=== PATIENT | male | born 1980 | race African-American/Black ===

== ENCOUNTER 2018-09-06 11:24 | Day surgery (SDC) | payer MEDICAID, OTHER ==
[~2018-09-06 11:24] MED LIST: PROPOFOL INJ 200 MG/20 ML VIAL IV ONE
[2018-09-06 12:37] VITALS: BP 136/70
--- NOTE | 2018-09-06 12:41 | Operative Report ---
Operative Report DATE OF SURGERY: 09/06/18 Operative Report: The risks, benefits and alternatives of the procedure including the risk of bleeding, perforation requiring surgery have been explained to the patient in detail and informed consent has been obtained. Patient is taken back to the endoscopy suite and placed in the left, lateral decubital position. Timeout was called. Propofol medication is administered. A rectal examination is done which did not reveal any masses, tears or fissures. An Olympus videoscope was introduced into the patient's rectum. The scope was then carefully advanced all the way to the cecum. The cecum was identified by the usual anatomical landmarks including the ileocecal valve as well as the appendiceal office. Photodocumentation is obtained. The scope was then sequentially pulled back via the various segments of the colon including the ascending colon, hepatic flexure, transverse colon, splenic flexure, descending colon and finally into the rectosigmoid portions of the colon. Retroflexion maneuvers performed. The risks benefits and alternatives of the procedure explained to the patient in detail and informed consent is obtained.A GIF Olympus video scope was inserted into the patient's mouth and hypopharynx, the esophagus is identified intubated and insufflated ,the scope was then advanced through the esophagus stomach and duodenum, retroflexion maneuver is done, the esophagus stomach and first and second portions of the duodenum examined. PREOPERATIVE DIAGNOSIS: Rectal bleeding. Gastroesophageal reflux disease POSTOPERATIVE DIAGNOSIS: Right-sided inflammation noted in the colon, biopsy rule out lymphocytic colitis. Internal hemorrhoids. Gastritis. Duodenitis. Biopsies to rule out for Helicobacter pylori OPERATION: Colonoscopy with biopsy. EGD with biopsy SURGEON: RAMILA RAINES ANESTHESIA: LMAC TISSUE REMOVED OR ALTERED: As noted above. COMPLICATIONS: None. ESTIMATED BLOOD LOSS: None. INTRAOPERATIVE FINDINGS: As noted above. PROCEDURE: Patient tolerated the procedure well. No immediate postprocedure complications are noted. Patient is discharged in good condition. Discharge date 09/06/2018. Discharge diet: Regular. Discharge activity: Regular. 2 to 3-week follow-up to discuss findings. Patient is instructed to call the office or proceed to the emergency room should there be any further problems or questions. Wait on the pathology.
== END 2018-09-06 12:40 | disposition home or self-care (01) ==
LOC: END 11:24
PROVIDERS: ATTEND Internal Medicine Gastroenterology
DX: K52.9 Noninfective gastroenteritis and colitis, unspecified (principal); K64.8 Other hemorrhoids; K29.50 Unspecified chronic gastritis without bleeding; K29.80 Duodenitis without bleeding; K62.5 Hemorrhage of anus and rectum; K21.9 Gastro-esophageal reflux disease without esophagitis; Z79.899 Other long term (current) drug therapy
CPT/HCPCS: 43239; 45380; 88305 ×2; J2704

== ENCOUNTER → 2018-09-10 | Outpatient (CLI) | payer OTHER ==
[2018-09-10 15:53] LABS: ABSOLUTE EOSINOPHILS # (AUTO) 0.2 10^3/uL (0.0-0.6); ABSOLUTE LYMPHOCYTES (AUTO) 2.9 10^3/uL (0.5-4.7); ABSOLUTE MONOCYTES (AUTO) 0.6 10^3/uL (0.1-1.4); ABSOLUTE NEUT (AUTO) 4.9 10^3/uL (1.7-8.2); BASOPHILS % (AUTO) 0.2 % (0-2); EOSINOPHILS % (AUTO) 1.8 % (0-6); HEMATOCRIT 43.8 % (37.9-51.0); HEMOGLOBIN 14.8 g/dL (13.5-17.0); LYMPHOCYTES % (AUTO) 33.7 % (13-45); MEAN CORPUSCULAR HEMOGLOBIN 31.5 pg (27.0-33.4); MEAN CORPUSCULAR HGB CONC 33.7 g/dL (32.0-36.0); MEAN CORPUSCULAR VOLUME 93 fl (80-97); MONOCYTES % (AUTO) 6.7 % (3-13); PLATELET COUNT 277 10^3/uL (150-450); RED BLOOD COUNT 4.69 10^6/uL (4.35-5.55); RED CELL DISTRIBUTION WIDTH 14.5 % (11.5-14.0); SEGMENTED NEUTROPHILS % (AUTO) 57.6 % (42-78); TOTAL CELLS COUNTED % (AUTO) 100 %; WHITE BLOOD COUNT 8.5 10^3/uL (4.0-10.5)
== END ==
LOC: OD 14:30
PROVIDERS: ATTEND Surgery
DX: R22.1 Localized swelling, mass and lump, neck (principal); R59.1 Generalized enlarged lymph nodes
CPT/HCPCS: 36415; 83615; 85025

== ENCOUNTER 2018-10-14 08:26 | Day surgery (SDC) | payer OTHER ==
[~2018-10-14 08:26] MED LIST changes: +CEFAZOLIN 1 GM/D5W RTU 1 GM/50 ML RTUPB IV ONE; +CEFAZOLIN 1 GM/D5W RTU 1 GM/50 ML RTUPB IV PRN; +LACTATED RINGERS 1000 ML IV PRN; +LIDOCAINE 0.5% INJ-PF (5 MG/ML) 50 ML SDV SUBCUT PRN; -PROPOFOL INJ 200 MG/20 ML VIAL IV ONE
[2018-10-14] MEDS ORDERED: BUPIVACAINE HCL 0.25% /EPINEPHRINE INJ/PF 30 ML SDV INFIL ONE ×3 (09:22→10:22)
[2018-10-14] MEDS ORDERED: BUPIVACAINE HCL 0.25% /EPINEPHRINE INJ/PF 30 ML SDV ONE (09:31)
[2018-10-14] MEDS ORDERED: KETAMINE HCL INJ 500 MG/10 ML VIAL ONE (10:00)
[2018-10-14] MEDS ORDERED: MIDAZOLAM 2 MG/2 ML INJ ONE (10:01)
[2018-10-14] MEDS ORDERED: PROPOFOL INJ 200 MG/20 ML VIAL IV ONE ×2 (10:01→11:18)
[2018-10-14] MEDS ORDERED: FENTANYL CITRATE INJ/PF 100 MCG/2 ML AMPUL ONE (10:01)
[2018-10-14] MEDS ORDERED: FENTANYL CITRATE INJ/PF 100 MCG/2 ML AMPUL IV PRN ×3 (10:57)
[2018-10-14] MEDS ORDERED: PROMETHAZINE HCL INJ 25 MG/1 ML VIAL IV PRN ×2 (10:57)
[2018-10-14] MEDS ORDERED: DIPHENHYDRAMINE HCL 50 MG/ML VIAL IV PRN (10:57)
[2018-10-14] MEDS ORDERED: MEPERIDINE HCL/PF INJ 25 MG/1 ML DISP.SYRIN IV PRN (10:57)
[2018-10-14] MEDS ORDERED: MORPHINE SULFATE 10 MG/ML INJ IV PRN (10:57)
--- NOTE | 2018-10-14 11:02 | Operative Report ---
Nonrecallable Operative Report DATE OF SURGERY: 10/14/18 PREOPERATIVE DIAGNOSIS: Right cervical lymphadenopathy POSTOPERATIVE DIAGNOSIS: Right cervical lymphadenopathy OPERATION: Right cervical node biopsy SURGEON: MIKE DAVILA [employer]: GEOVANNA MCLEAN ANESTHESIA: Moderate Sedation TISSUE REMOVED OR ALTERED: Right cervical lymph node COMPLICATIONS: None ESTIMATED BLOOD LOSS: 15 cc INTRAOPERATIVE FINDINGS: See dictation PROCEDURE: Patient was brought to the operating room awake alert stable condition placed in the operative table supine position given moderate sedation by anesthesia. The right neck was prepped and draped in usual sterile manner for the procedure. About 2 cm inferior to the right mandible approximately 4 cm long incision was made with a 15 blade and dissection was carried down through subcutaneous tissue with Bovie cautery through the platysma muscle with Bovie cautery. Superficial cervical fascia was divided with Bovie cautery and the sternocleidomastoid muscle was encountered the mass was just underneath the sternocleidomastoid muscle the muscle was bluntly divided and and held open with Army-Plain View retractors. The large cervical node was encountered and was bluntly dissected from the surrounding tissue on top of the internal jugular vein. It was bluntly mobilized and the pedicle supplying the lymph node was controlled with a 3-0 Vicryl suture and the lymph node was able to be removed. It was noted to be oozing some pus and therefore cultures were sent in addition as a small specimen was sent for AFB. The remainder of the large lymph node which is about 3 cm in diameter was sent off for pathology. The sternocleidomastoid muscle was then reapproximated with 2 stitches of 3-0 Vicryl similarly the platysma muscle was reapproximated and the skin was then closed with 4-0 Biosyn. The incision was then secured with Steri-Strips which completed the procedure. Estimated blood loss is approximately 15 cc. Geovanna reilly was present for wound retraction wound closure throughout the entire case.
--- NOTE | 2018-10-14 11:04 | Discharge Summary ---
Discharge Summary (SDC) - Discharge Final Diagnosis: Right cervical lymphadenopathy Date of Surgery: 10/14/18 Discharge Date: 10/14/18 Condition: Good Forms: ASU Anesthesia D/C Instruction, Discharge POC-Surgical Service Referrals: MIKE FITCH MD [ACTIVE STAFF] - 10/22/18 10:15 am Discharge Diet: As Tolerated Discharge Activity: Activity As Tolerated Report the Following to Your Physician Immediately: Shortness of Breath, Nausea, Vomiting, Increase in Pain - She needs a follow-up appointment 10 to 14 days pos top, Unusual Bleeding, Redness
[2018-10-14] MEDS ORDERED: OXYCODONE-ACETAMINOPHEN 5-325 MG TABLET PO PRN (11:05)
[2018-10-14] MEDS ORDERED: OXYCODONE-ACETAMINOPHEN 5-325 MG TABLET ONE (12:05)
[2018-10-14] MEDS ORDERED: GLYCOPYRROLATE 1 MG/5 ML VIAL ONE (13:52)
[2018-10-14] MEDS ORDERED: ONDANSETRON HCL INJ/PF 4 MG/2 ML SDV ONE (13:52)
[2018-10-14 13:56] VITALS: BP 118/74
== END 2018-10-14 13:06 | disposition home or self-care (01) ==
LOC: OROUT 08:26
PROVIDERS: ATTEND Surgery
DX: C96.9 Malignant neoplasm of lymphoid, hematopoietic and related tissue, unspecified (principal); R59.0 Localized enlarged lymph nodes; F17.210 Nicotine dependence, cigarettes, uncomplicated; Z79.899 Other long term (current) drug therapy; Z01.818 Encounter for other preprocedural examination
CPT/HCPCS: 87070; 87205; 87101; 87075; 88305 ×2; 00320; 38500; J2250; J3490 ×3; J0690; J3010; J2405; J2704; 320

== ENCOUNTER → 2018-11-21 | Outpatient (CLI) | payer OTHER ==
--- NOTE | 2018-11-22 14:14 | RADIOLOGY REPORT (SQ) ---
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 TECHNIQUE: Blood glucose level was verified. Above dose of FDG was injected intravenously. 2-D seg mented attenuation correction images were obtained from the base of the skull to the midthighs. Nonc ontrast CT images were obtained for attenuation correction and fusion with emission images. CT image s were performed without oral or intravenous contrast and are not sensitive for parenchymal lesions. A series of overlapping emission PET images were obtained. Images reviewed and manipulated at [facility] work [facility] by the radiologist. Images stored on PACS. LIMITATIONS: None. FINDINGS: HEAD AND NECK: There is diffuse symmetric uptake throughout the bilateral pharyngeal tonsi ls and tongue base lymphoid tissue without a discrete mass. SUV ranges from 6.3 to 7.2. No hypermetabolic cervical lymph nodes are identified. CHEST: No areas of abnormal metabolic activity in the chest. ABDOMEN AND PELVIS: No areas of abnormal metabolic activity in the abdomen or pelvis. Expected physi ologic activity is present in the genitourinary system and bowel. PROXIMAL LOWER EXTREMITIES: No areas of abnormal metabolic activity in the soft tissues of the lower extremities. BONES: No abnormal metabolic activity in the visualized skeleton. ADDITIONAL CT FINDINGS: No additional significant findings on the noncontrast CT images. OTHER: Liver background activity 2.4 SUV. Blood pool background activity 1.5 SUV IMPRESSION: Mild diffuse increased uptake throughout the bilateral pharyngeal tonsils and tongue bas e lymphoid tissue without a discrete malignant mass identified. No hypermetabolic cervical or supraclavicular adenopathy TECHNICAL DOCUMENTATION: JOB ID: [id number]- All Rights Reserved Reading location - IP/workstation name: [email or web address]
== END ==
LOC: RAD 16:58
PROVIDERS: ATTEND Otolaryngology
DX: C77.0 Secondary and unspecified malignant neoplasm of lymph nodes of head, face and neck (principal)
CPT/HCPCS: 78815; A9552

== ENCOUNTER 2018-11-30 09:03 | Day surgery (SDC) | payer OTHER ==
[~2018-11-30 09:03] MED LIST changes: +AMPICILLIN SODIUM 2 GM in NORMAL SALINE 100 ML IV PRN; -CEFAZOLIN 1 GM/D5W RTU 1 GM/50 ML RTUPB IV ONE; -CEFAZOLIN 1 GM/D5W RTU 1 GM/50 ML RTUPB IV PRN; +DEXAMETHASONE SOD PHOS INJ 10 MG/1 ML VIAL ONE; +DEXMEDETOMIDINE INJ 80 MCG/20 ML VIAL IV ONE; +FENTANYL CITRATE INJ/PF 100 MCG/2 ML AMPUL ONE; +GLYCOPYRROLATE INJ 0.4 MG/2 ML VIAL ONE; -LACTATED RINGERS 1000 ML IV PRN; -LIDOCAINE 0.5% INJ-PF (5 MG/ML) 50 ML SDV SUBCUT PRN; +LIDOCAINE 2% INJ-PF (100 MG/5 ML) SYRINGE ONE; +MIDAZOLAM 2 MG/2 ML INJ ONE; +ONDANSETRON HCL INJ/PF 4 MG/2 ML SDV ONE; +PROPOFOL INJ 200 MG/20 ML VIAL IV ONE; +SUCCINYLCHOLINE CHLORIDE INJ 200 MG/10 ML VIAL ONE
[2018-11-30] MEDS ORDERED: FAMOTIDINE INJ/PF 20 MG/2 ML SDV IV ONE (10:25)
[2018-11-30] MEDS ORDERED: OXYMETAZOLINE HCL 0.05% NASAL SPRAY 15 ML BOTTLE ONE ×2 (10:28→12:06)
[2018-11-30] MEDS ORDERED: FENTANYL CITRATE INJ/PF 100 MCG/2 ML AMPUL ONE (12:27)
[2018-11-30] MEDS ORDERED: NEOSTIGMINE METHYLSULFATE 10 MG/10 ML VIAL ONE (12:31)
[2018-11-30] MEDS ORDERED: ROCURONIUM BROMIDE INJ 50 MG/5 ML VIAL IV ONE (12:31)
[2018-11-30] MEDS ORDERED: PROPOFOL INJ 200 MG/20 ML VIAL IV ONE (12:31)
--- NOTE | 2018-11-30 12:33 | Operative Report ---
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 A PET CT scan had increased activity in the bilateral palate team tonsils and base of tongue area. Patient presents today for a tonsillectomy and biopsy of the base of tongue. Informed consent was obtained for the patient. Pre-operative diagnosis: 1. 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 Unknown primary squamous carcinoma, head and neck Post operative diagnosis: Same as above Procedure: 1. Tonsillectomy 2. Biopsy base of tongue, right side 3. Biopsy base of tongue, left side Surgeon: Terrell Strickland MD, FACS, [facility] Anesthesia: General via Endotrachreal intubation Procedure: After receiving informed consent, the patient was brought to the operating room and placed supine on the operating table. After successful induction and intubation by anesthesia the patient was turned 90 degrees and placed in Trendelenburg. A shoulder roll was placed along with a head drape. A McIvor mouth gag was inserted atraumatically into the oral cavity and opened up. The soft palate was palpated and found to be normal. Red rubber catheters were inserted down each nasal cavity and brought out to elevate the soft palate. Attention was then directed to the tonsils. The right tonsil was grasped with tenaculum and retracted medially. Using Bovie electrocautery the right tonsil was dissected free from its tonsillar fossa . Hemostasis was obtained using suction Bovie electrocautery. A similar procedure was performed on the left side. Both tonsils were removed. The tonsils were 2+. There was no evidence of mass, lesion within either tonsil. Attention was then directed to the base of tongue area where using a Barron laryngoscope, biopsies were taken from the right and left sides of the base of tongue. The base of tongue appeared as normal lymphoid tissue without evidence of a mass or lesion. Hemostasis obtained with Afrin saturated tonsil packs. The oral pharynx and the oral cavity were irrigated with copious amounts of normal saline, without evidence of bleeding. An orogastric tube was inserted into the stomach to aspirate gastric contents. The McIvor mouthgag was then released and reopened, the surgical bed was dry without evidence of bleeding. The McIvor mouth gag along with the red catheters were removed from the patient. The patient was then returned back to anesthesia who successfully extubated the patient. Estimated blood loss: 15 mL Fluids: 1000 mL The patient was then transported to the Post Anesthesia Care Unit in stable condition with spontaneous respiration. No complication.
[2018-11-30] MEDS ORDERED: OXYCODONE-ACETAMINOPHEN 5-325 MG TABLET ONE (12:46)
== END 2018-11-30 13:46 | disposition home or self-care (01) ==
LOC: SC 09:03
PROVIDERS: ATTEND Otolaryngology
DX: C77.0 Secondary and unspecified malignant neoplasm of lymph nodes of head, face and neck (principal); R59.1 Generalized enlarged lymph nodes; C80.1 Malignant (primary) neoplasm, unspecified
CPT/HCPCS: 42826; 88185 ×15; 88184; 88233; 88262; 88304 ×2; 88305 ×2; 00170; 41599; J0290; J2250; J3490 ×3; J3010; J2001; J2710; J0330; J2405; J7050; J2704; S0028; J1100; 170

== ENCOUNTER 2019-03-01 09:39 | Outpatient (CLI) | payer OTHER ==
[~2019-03-01 09:39] MED LIST changes: -AMPICILLIN SODIUM 2 GM in NORMAL SALINE 100 ML IV PRN; +CISPLATIN IV PRN; +DEXAMETHASONE 10 MG in NS 50 ML IV PRN; -DEXAMETHASONE SOD PHOS INJ 10 MG/1 ML VIAL ONE; -DEXMEDETOMIDINE INJ 80 MCG/20 ML VIAL IV ONE; -FENTANYL CITRATE INJ/PF 100 MCG/2 ML AMPUL ONE; +FOSAPREPITANT 150 MG in NS 150 ML IV PRN; +FUROSEMIDE INJ/PF 20 MG/2 ML SDV IV PRN; -GLYCOPYRROLATE INJ 0.4 MG/2 ML VIAL ONE; -LIDOCAINE 2% INJ-PF (100 MG/5 ML) SYRINGE ONE; -MIDAZOLAM 2 MG/2 ML INJ ONE; +NORMAL SALINE 500 ML @ KVO IV PRN; +NORMAL SALINE IV PRN; -ONDANSETRON HCL INJ/PF 4 MG/2 ML SDV ONE; +PALONOSETRON 0.25 MG/5 ML VIAL IV PRN; -PROPOFOL INJ 200 MG/20 ML VIAL IV ONE; -SUCCINYLCHOLINE CHLORIDE INJ 200 MG/10 ML VIAL ONE
[2019-03-01 10:22] VITALS: BP 121/73
== END 2019-03-01 13:30 | disposition home or self-care (01) ==
LOC: II 09:39 → 5TH 09:40 → II 13:30
PROVIDERS: ATTEND Internal Medicine
DX: Z51.11 Encounter for antineoplastic chemotherapy (principal); C76.0 Malignant neoplasm of head, face and neck
CPT/HCPCS: 96413; 96367; 96375; 96361; J9060; J1940; J7050; J7040; J1100; J1453; J2469

== ENCOUNTER 2019-03-08 09:25 | Outpatient (CLI) | payer OTHER ==
[2019-03-08 09:47] VITALS: BP 110/69
== END 2019-03-08 13:45 | disposition home or self-care (01) ==
LOC: II 09:25 → 5TH 09:29 → II 13:45
PROVIDERS: ATTEND Internal Medicine
DX: Z51.11 Encounter for antineoplastic chemotherapy (principal); C76.0 Malignant neoplasm of head, face and neck
CPT/HCPCS: 96413; 96415; 96367; 96375; J9060; J7050; J7040; J1100; J1453; J2469; 96361; J1940

== ENCOUNTER → 2019-06-07 | Outpatient (CLI) | payer OTHER | LOC: RAD 08:20 | PROVIDERS: ATTEND Internal Medicine | DX: C76.0 Malignant neoplasm of head, face and neck (principal) ==

== ENCOUNTER → 2019-06-10 | Outpatient (CLI) | payer OTHER ==
--- NOTE | 2019-06-10 08:50 | RADIOLOGY REPORT (SQ) ---
EXAM DESCRIPTION: CT SOFT TISSUE NECK WITH IMAGES COMPLETED DATE/TIME: 06/10/2019 8:24 am; 06/07/2019 8:43 am REASON FOR STUDY: MALIGNANT NEOPLASM OF HEAD, FACE AND NECK; C76.0 MALIGNANT NEOPLASM OF HEAD, FACE AND NECK C76.0 MALIGNANT NEOPLASM OF HEAD, FACE AND NECK COMPARISON: None. TECHNIQUE: Sequential CT images of the neck were obtained after the intravenous administration of 75 mL of intravenous contrast. The patient was first scanned on 06/07/2019, however due to the timing o f the contrast bolus the images were essentially noncontrast. The patient was re-scanned on 0. All CT scanners at this facility use dose modulation, iterative reconstruction, and/or weight based d osing when appropriate to reduce radiation dose to as low as reasonably achievable (ALARA). [facility]: Dose Right [facility]: CareDose [facility]: Dose Right [facility]: Teradose 4D [facility]: Oodrive CONTRAST TYPE AND DOSE: Contrast/concentration: Isovue 350.00 mg/ml; Total Contrast Delivered: 75.0 ml; Total Saline Delivered: 55.0 ml RENAL FUNCTION: GFR > 60. RADIATION DOSE: DLP 916.45 mGy cm LIMITATIONS: None. FINDINGS: SKULL BASE: Intact. MAJOR SALIVARY GLANDS: No mass, inflammation or asymmetry. LYMPHADENOPATHY: No adenopathy. MUCOSAL MASSES OR ASYMMETRY: The mucosa of the oral and laryngeal parts of the pharynx is edematous. There is no discrete mass. There is a trace amount of fluid within the retropharyngeal space. LARYNX/CORDS: No abnormality. VASCULAR STRUCTURES: Patent. LUNG APICES: Paraseptal emphysema. BONES: There is reversal of the normal lordotic curvature of the cervical spine. There is no cranioc ervical atlantoaxial dissociation. The C4-C5 and C5-C6 intervertebral discs are narrowed. There is no fracture or osseous lesion. THYROID: No mass or asymmetry. PARANASAL SINUSES: Probable mucous retention cysts within the maxillary sinuses. OTHER: Mild dermal thickening and subcutaneous fat stranding inferior to the mandible. IMPRESSION: No cervical mass or adenopathy. The edematous appearance of the mucosa of the oral and laryngeal parts of the pharynx, the fluid in the retropharyngeal space, and the dermal thickening and subcutaneous fat stranding inferior to the mandible could represent sequela of prior radiation. TECHNICAL DOCUMENTATION: JOB ID: [id number] Quality ID # [id number]: Final reports with documentation of one or more dose reduction techniques (e.g., Au tomated exposure control, adjustment of the mA and/or kV according to patient size, use of iterative reconstruction technique) 2010 [employer]- All Rights Reserved Reading location - IP/workstation name: [email or web address]
== END ==
LOC: RAD 08:03
PROVIDERS: ATTEND Internal Medicine
DX: C76.0 Malignant neoplasm of head, face and neck (principal)
CPT/HCPCS: 70491